=== PATIENT | male | born 1955 | race Caucasian/White ===

== ENCOUNTER 2023-12-06 07:38 | Day surgery (SDC) | payer OTHER, MEDICARE ==
[2023-11-29 09:34] VITALS: BMI 23.6
[2023-12-06] MEDS: TROPICAMIDE 1% OPHTH SOLN 15 ML BOTTLE ONE (08:10)
[2023-12-06] MEDS: PHENYLEPHRINE 2.5% OPTHALMIC DROP 2ML BOTTLE ONE (08:10)
[2023-12-06] MEDS: CYCLOPENTOLATE 2% OPHTH SOLN 2 ML BOTTLE ONE (08:10)
[2023-12-06] MEDS: CIPROFLOXACIN 0.3% EYE DROPS 5 ML BOTTLE ONE (08:10)
[2023-12-06] MEDS ORDERED: NEO/POLYMYX B SULF/DEXAMETH OPHTHALMIC 5ML BOTTLE ONE (08:25)
[2023-12-06] MEDS ORDERED: CARBACHOL 0.01% INTRA-OCULAR 1.5 ML VIAL ONE (08:25)
[2023-12-06] MEDS ORDERED: LIDOCAINE 1% P/F 10 MG/ML VIAL ONE (08:25)
[2023-12-06] MEDS ORDERED: BSS (NA/CA/MG/K) BALANCED SALT SOLUTION OPHTH SOLN 15 ML BOTTLE ONE (08:25)
[2023-12-06] MEDS ORDERED: TETRACAINE 0.5% OPHTH SOLN 2 ML BOTTLE ONE (08:25)
[2023-12-06] MEDS ORDERED: MIDAZOLAM HCL 2 MG/2 ML SINGLE DOSE VIAL ONE (09:18)
[2023-12-06 09:58] VITALS: RESP 18; TEMP 97.4
[2023-12-06 10:30] VITALS: BP 120/72; PULSE 60
== END 2023-12-06 10:20 | disposition home or self-care (01) ==
LOC: FASU 07:38
PROVIDERS: ATTEND Ophthalmology
PROC: 08RJ3JZ Replacement of Right Lens with Synthetic Substitute, Percutaneous Approach (ICD-10-PCS; principal; 2023-12-06 09:29)
DX: H26.8 Other specified cataract (principal)
CPT/HCPCS: 66984; V2632

== ENCOUNTER 2023-12-20 10:39 | Day surgery (SDC) | payer OTHER, MEDICARE ==
[2023-12-14 11:18] VITALS: BMI 23.6
[2023-12-20] MEDS: PHENYLEPHRINE 2.5% OPTHALMIC DROP 2ML BOTTLE ONE (10:55)
[2023-12-20] MEDS: CYCLOPENTOLATE 2% OPHTH SOLN 2 ML BOTTLE ONE (10:55)
[2023-12-20] MEDS: TROPICAMIDE 1% OPHTH SOLN 15 ML BOTTLE ONE (10:55)
[2023-12-20] MEDS: CIPROFLOXACIN 0.3% EYE DROPS 5 ML BOTTLE ONE (10:55)
[2023-12-20] MEDS ORDERED: LIDOCAINE 1% P/F 10 MG/ML VIAL ONE (11:02)
[2023-12-20] MEDS ORDERED: NEO/POLYMYX B SULF/DEXAMETH OPHTHALMIC 5ML BOTTLE ONE (11:03)
[2023-12-20] MEDS ORDERED: CARBACHOL 0.01% INTRA-OCULAR 1.5 ML VIAL ONE (11:03)
[2023-12-20] MEDS ORDERED: TETRACAINE 0.5% OPHTH SOLN 2 ML BOTTLE ONE (11:03)
[2023-12-20] MEDS ORDERED: BSS (NA/CA/MG/K) BALANCED SALT SOLUTION OPHTH SOLN 15 ML BOTTLE ONE (11:03)
[2023-12-20 11:06] VITALS: RESP 18; TEMP 97.3
[2023-12-20] MEDS ORDERED: MIDAZOLAM HCL 2 MG/2 ML SINGLE DOSE VIAL ONE (12:50)
[2023-12-20] MEDS ORDERED: ONDANSETRON 4 MG/2 ML VIAL ONE (12:50)
[2023-12-20 13:19] VITALS: PULSE 74
[2023-12-20 13:37] VITALS: BP 134/72
== END 2023-12-20 13:38 | disposition home or self-care (01) ==
LOC: FASU 10:39
PROVIDERS: ATTEND Ophthalmology
PROC: 08RK3JZ Replacement of Left Lens with Synthetic Substitute, Percutaneous Approach (ICD-10-PCS; principal; 2023-12-20 12:53)
DX: H26.8 Other specified cataract (principal)
CPT/HCPCS: 66984; V2632